=== PATIENT | female | born 1995 | race Two or more races ===

== ENCOUNTER 2018-02-17 13:42 | Emergency (ER) | payer SELFPAY ==
[2018-02-17 13:54] VITALS: BP 120/71
[2018-02-17 14:40] LABS: APPEARANCE,URINE SLIGHTLY-CLOUDY; BILIRUBIN,URINE NEGATIVE (NEGATIVE); COLOR,URINE AMBER; GLUCOSE, URINE NEGATIVE (NEGATIVE); KETONES,URINE NEGATIVE (NEGATIVE); LEUKOCYTE ESTERASE,URINE SMALL (NEGATIVE); NITRITE,URINE NEGATIVE (NEGATIVE); PROTEIN,URINE NEGATIVE (NEGATIVE); URINE SPECIFIC GRAVITY 1.015; UROBILINOGEN,URINE NEGATIVE mg/dL (<2.0)
[2018-02-17] MEDS ORDERED: CEPHALEXIN 500 MG CAPSULE PO ONE (15:47)
--- NOTE | 2018-02-17 15:48 | ER Document Report ---
HPI - HPI Patient complains to provider of: Urinary symptoms Onset: Last week Onset/Duration: Persistent Quality of pain: Burning Pain Level: 3 Context: Patient presents complaining of frequency and dysuria for the past week. Patient denies any fever, back pain nausea or vomiting. Associated Symptoms: denies: Fever, Nausea, Vomiting Exacerbated by: Denies Relieved by: Denies Similar symptoms previously: Yes Recently seen / treated by doctor: No - ROS ROS below otherwise negative: Yes Systems Reviewed and Negative: Yes All other systems reviewed and negative - CONSTITUTIONAL Constitutional: DENIES: Fever - GASTROINTESTINAL Gastrointestinal: DENIES: Abdominal Pain, Nausea, Patient vomiting - URINARY Urinary: REPORTS: Dysuria, Urgency, Frequency - MUSCULOSKELETAL Musculoskeletal: DENIES: Back Pain - DERM Skin Color: Normal Skin Problems: None Past Medical History - General Information source: Patient - Social History Smoking Status: Never Smoker Frequency of alcohol use: None Drug Abuse: None Occupation: [employer] Family History: Reviewed & Not Pertinent Patient has suicidal ideation: No Patient has homicidal ideation: No - Medical History Medical History: Negative Renal/ Medical History: Denies: Hx Peritoneal Dialysis Past Surgical History: Reports: Hx Orthopedic Surgery Vertical Provider Document - CONSTITUTIONAL Agree With Documented VS: Yes Exam Limitations: No Limitations General Appearance: WD/WN, No Apparent Distress - INFECTION CONTROL TRAVEL OUTSIDE OF THE [place] IN LAST 30 DAYS: No - HEENT HEENT: Atraumatic, Normocephalic - NECK Neck: Normal Inspection - RESPIRATORY Respiratory: Breath Sounds Normal, No Respiratory Distress - CARDIOVASCULAR Cardiovascular: Regular Rate, Regular Rhythm - GI/ABDOMEN Gastrointestinal: Abdomen Soft - BACK Back: Normal Inspection. negative: CVA Tenderness-Right, CVA Tenderness-Left - MUSCULOSKELETAL/EXTREMETIES Musculoskeletal/Extremeties: DIEGO SHEN - NEURO Level of Consciousness: Awake, Alert, Appropriate Motor/Sensory: No Motor Deficit - DERM Integumentary: Warm, Dry Course - Vital Signs Vital signs: Temp Pulse Resp BP Pulse Ox 98.5 F 88 12 120/71 98 02/17/18 13:52 02/17/18 13:52 02/17/18 13:52 02/17/18 13:52 02/17/18 13:52 - Laboratory Laboratory results interpreted by me: 02/17/18 14:00 Urine Blood SMALL H Ur Leukocyte Esterase SMALL H 02/17/18 15:47 Labs- Entire Visit 02/17/18 14:00 Urine Color WALE Urine Appearance SLIGHTLY-CLOUDY Urine pH 6.0 Ur Specific [place] 1.015 Urine Protein NEGATIVE Urine Glucose (UA) NEGATIVE Urine Ketones NEGATIVE Urine Blood SMALL H Urine Nitrite NEGATIVE Urine Bilirubin NEGATIVE Urine Urobilinogen NEGATIVE Ur Leukocyte Esterase SMALL H Urine WBC (Auto) 37 Urine RBC (Auto) 2 Urine Bacteria (Auto) TRACE Squamous Epi Cells Auto 2 Urine Mucus (Auto) RARE Urine Ascorbic Acid NEGATIVE Discharge - Discharge Clinical Impression: UTI (urinary tract infection) Qualifiers: Urinary tract infection type: site unspecified Hematuria presence: with hematuria Qualified Code(s): N39.0 - Urinary tract infection, site not specified Condition: Stable Disposition: HOME, SELF-CARE Instructions: Cephalexin ([facility]), Urinary Anesthetic Agent ([facility]), Urinary Tract Infection ([facility]) Additional Instructions: Return immediately for any new or worsening symptoms Followup with your primary care provider, call tomorrow to make a followup appointment Prescriptions: Cephalexin Monohydrate [Keflex 500 mg Capsule] 500 mg PO Q6H 5 Days capsule Phenazopyridine HCl [Pyridium 200 mg Tablet] 200 mg PO TID #15 tablet Forms: Return to Work Referrals: [facility] [Provider Group] - Follow up as needed
== END 2018-02-17 16:16 | disposition home or self-care (01) ==
LOC: ER 13:42
DX: N39.0 Urinary tract infection, site not specified (principal)
CPT/HCPCS: 81001; 99283

== ENCOUNTER 2018-06-01 21:55 | Emergency (ER) | payer SELFPAY ==
[2018-06-01 23:11] LABS: ABSOLUTE EOSINOPHILS # (AUTO) 0.2 10^3/uL (0.0-0.6); ABSOLUTE LYMPHOCYTES (AUTO) 2.9 10^3/uL (0.5-4.7); ABSOLUTE MONOCYTES (AUTO) 0.9 10^3/uL (0.1-1.4); ABSOLUTE NEUT (AUTO) 6.5 10^3/uL (1.7-8.2); BASOPHILS % (AUTO) 0.3 % (0-2); HEMATOCRIT 33.1 % (36.0-47.0); HEMOGLOBIN 10.6 g/dL (12.0-15.5); LYMPHOCYTES % (AUTO) 27.5 % (13-45); MEAN CORPUSCULAR HEMOGLOBIN 24.2 pg (27.0-33.4); MEAN CORPUSCULAR VOLUME 76 fl (80-97); MONOCYTES % (AUTO) 8.6 % (3-13); PLATELET COUNT 329 10^3/uL (150-450); RED BLOOD COUNT 4.37 10^6/uL (3.72-5.28); RED CELL DISTRIBUTION WIDTH 16.5 % (11.5-14.0); SEGMENTED NEUTROPHILS % (AUTO) 61.6 % (42-78); TOTAL CELLS COUNTED % (AUTO) 100 %; WHITE BLOOD COUNT 10.5 10^3/uL (4.0-10.5)
[2018-06-01 23:12] LABS: APPEARANCE,URINE SLIGHTLY-CLOUDY; BILIRUBIN,URINE NEGATIVE (NEGATIVE); COLOR,URINE YELLOW; GLUCOSE, URINE NEGATIVE (NEGATIVE); KETONES,URINE NEGATIVE (NEGATIVE); LEUKOCYTE ESTERASE,URINE SMALL (NEGATIVE); NITRITE,URINE NEGATIVE (NEGATIVE); PROTEIN,URINE NEGATIVE (NEGATIVE); URINE SPECIFIC GRAVITY 1.029; UROBILINOGEN,URINE NEGATIVE mg/dL (<2.0)
[2018-06-01 23:27] LABS: ALANINE AMINOTRANSFERASE 35 U/L (9-52); ALBUMIN 4.5 g/dL (3.5-5.0); ALKALINE PHOSPHATASE 90 U/L (38-126); ANION GAP 9 (5-19); ASPARTATE AMINO TRANSFERASE 22 U/L (14-36); BILIRUBIN,DIRECT 0.1 mg/dL (0.0-0.4); BILIRUBIN,TOTAL 0.2 mg/dL (0.2-1.3); BLOOD UREA NITROGEN 16 mg/dL (7-20); CALCIUM 9.5 mg/dL (8.4-10.2); CARBON DIOXIDE 26 mmol/L (22-30); CHLORIDE 105 mmol/L (98-107); GLUCOSE 94 mg/dL (75-110); POTASSIUM 4.3 mmol/L (3.6-5.0); SODIUM 140.2 mmol/L (137-145); TOTAL PROTEIN 7.8 g/dL (6.3-8.2)
[2018-06-02] MEDS ORDERED: METOCLOPRAMIDE HCL INJ/PF 10 MG/2 ML SDV IV ONE (01:44)
[2018-06-02] MEDS ORDERED: NORMAL SALINE 1000 ML 1,000 ML IV ONE (01:45)
--- NOTE | 2018-06-02 01:48 | ER Document Report ---
ED General - General Chief Complaint: High Blood Pressure Stated Complaint: HEADACHE/DIZZINESS Time Seen by Provider: 06/02/18 00:51 Notes: Patient is a 22-year-old female with a past medical history of iron deficiency anemia, no other chronic medical problems, presents with multiple complaints. Patient complains of nausea, diarrhea, lightheadedness, intermittent chest discomfort, intermittent shortness of breath, headache, and feeling remittent abdominal cramping. Patient reports the symptoms have been ongoing for the past 2 weeks. Nothing is new or different that prompted a visit to the emergency department tonight. Nothing improves or worsens her symptoms. Denies history of similar symptoms in the past. No sick contacts. She has not seen her general physician regarding today's concerns. TRAVEL OUTSIDE OF THE [place] IN LAST 30 DAYS: No - HPI Onset: Last week Onset/Duration: Gradual, Intermittent Quality of pain: Dull, Pressure Severity: Mild Pain Level: 1 Exacerbated by: Denies Relieved by: Denies Similar symptoms previously: No Recently seen / treated by doctor: No - Related Data Allergies/Adverse Reactions: No Known Allergies Allergy (Unverified 02/17/18 13:43) Past Medical History - General Information source: Patient - Social History Smoking Status: Never Smoker Frequency of alcohol use: None Drug Abuse: None Lives with: Spouse/Significant other Family History: Reviewed & Not Pertinent Patient has suicidal ideation: Yes - denies SI today Patient has homicidal ideation: No Renal/ Medical History: Denies: Hx Peritoneal Dialysis Past Surgical History: Reports: Hx Orthopedic Surgery Review of Systems - Review of Systems Notes: Constitutional: Negative for fever. HENT: Negative for sore throat. Eyes: Negative for visual changes. Cardiovascular: Positive for intermittent chest discomfort not currently present Respiratory: Positive for intermittent shortness of breath Gastrointestinal: Negative for abdominal pain, positive for diarrhea and nausea. Positive for intermittent abdominal cramping Genitourinary: Negative for dysuria. Musculoskeletal: Negative for back pain. Skin: Negative for rash. Neurological: Positive for headache 10 point ROS negative except as marked above and in HPI. Physical Exam - Vital signs Vitals: Temp Pulse Resp BP Pulse Ox 98.5 F 107 H 17 132/76 H 100 06/01/18 22:07 06/01/18 22:07 06/01/18 22:07 06/01/18 22:07 06/01/18 22:07 Interpretation: Tachycardic Notes: PHYSICAL EXAMINATION: GENERAL: Well-appearing, well-nourished and in no acute distress. HEAD: Atraumatic, normocephalic. EYES: Pupils equal round and reactive to light, extraocular movements intact, sclera anicteric, conjunctiva are normal. ENT: nares patent, oropharynx clear without exudates. Moist mucous membranes. NECK: Normal range of motion, supple without lymphadenopathy LUNGS: Breath sounds clear to auscultation bilaterally and equal. No wheezes rales or rhonchi. HEART: Regular tachycardia without murmurs ABDOMEN: Soft, nontender, normoactive bowel sounds. No guarding, no rebound. No masses appreciated. EXTREMITIES: Normal range of motion, no pitting or edema. No cyanosis. NEUROLOGICAL: Face symmetric. Tongue protrudes midline. Extraocular motions intact. Pupils are 2 mm and equally reactive. Normal speech, normal gait. 5 out of 5 strength in both the distal and proximal upper and lower extremities bilaterally. Sensation is grossly intact throughout. Finger to nose testing normal. Pronator drift normal. PSYCH: Anxious, intermittently tearful SKIN: Warm, Dry, normal turgor, no rashes or lesions noted. Course - Re-evaluation Re-evalutation: 06/02/18 01:47 Patient presents with multiple vague complaints that did not appear to be concerning for any acute life-threatening pathology. Patient complaints include shortness of breath, intermittent chest discomfort, headache, nausea, lightheadedness, diarrhea, and intermittent abdominal cramping. Patient was noted to be mildly tachycardic in triage and at the time of my assessment. This did resolve after IV fluid resuscitation. Physical examination is unremarkable. Patient has tolerated oral intake without difficulty. Patient was not noted to be in distress at any point except when she did develop an acute panic attack and required administration of diazepam. At this time, based on the reassuring evaluation, I do not suspect an acute DC, pulmonary embolus, aortic dissection, acute intra-abdominal pathology, stroke, or sepsis. Patient has improvement of her symptoms after receiving metoclopramide and IV fluids. Will discharge with return precautions and follow-up recommendations. Verbal discharge instructions given a the bedside and opportunity for questions given. Medication warnings reviewed. Patient is in agreement with this plan and has verbalized understanding of return precautions and the need for primary care follow-up in the next 24-72 hours. - Vital Signs Vital signs: Temp Pulse Resp BP Pulse Ox 98.5 F 107 H 24 H 109/75 100 06/01/18 22:07 06/01/18 22:07 06/02/18 02:00 06/02/18 01:01 06/02/18 01:01 - Laboratory Result Diagrams: 06/01/18 22:50 06/01/18 22:50 Laboratory results interpreted by me: 06/01/18 06/01/18 22:50 22:50 Hgb 10.6 L Hct 33.1 L MCV 76 L MCH 24.2 L RDW 16.5 H Ur Leukocyte Esterase SMALL H - Diagnostic Test Radiology reviewed: Image reviewed, Reports reviewed Radiology results interpreted by me: 06/02/18 03:23 Chest x-ray: No acute infiltrate or pneumothorax Discharge - Discharge Clinical Impression: Lightheadedness, Nausea Iron deficiency anemia Qualifiers: Iron deficiency anemia type: unspecified iron deficiency Qualified Code(s): D50.9 - Iron deficiency anemia, unspecified Headache Qualifiers: Headache type: unspecified Headache chronicity pattern: acute headache Intractability: not intractable Qualified Code(s): R51 - Headache Condition: Good Disposition: HOME, SELF-CARE Additional Instructions: Please return to the emergency room immediately if you experience any concerning symptoms including high fevers, severe headache, chest pain, difficulty breathin g, abdominal pain, slurred speech, numbness or weakness in your arms or legs, or any other symptom that concerns you.
[2018-06-02] MEDS ORDERED: DIAZEPAM INJ 10 MG/2 ML DISP.SYRIN IV ONE (02:19)
[2018-06-02 03:06] VITALS: BP 109/75
--- NOTE | 2018-06-02 03:17 | RADIOLOGY REPORT (SQ) ---
EXAM DESCRIPTION: XR CHEST 1 VIEW COMPLETED DATE/TME: 06/02/2018 01:45 CLINICAL HISTORY: 22 years Female, cp COMPARISON: None. NUMBER OF VIEWS/TECHNIQUE: 1/AP FINDINGS: Adequate lung volume, clear parenchyma, normal cardiac silhouette, and intact bony thorax. IMPRESSION: No acute cardiopulmonary findings.
== END 2018-06-02 03:57 | disposition home or self-care (01) ==
LOC: ER 21:55
DX: R51 Headache (principal); R11.0 Nausea; D50.9 Iron deficiency anemia, unspecified; R42 Dizziness and giddiness; R19.7 Diarrhea, unspecified; R07.9 Chest pain, unspecified; R06.02 Shortness of breath; R10.9 Unspecified abdominal pain
CPT/HCPCS: 99284; 96374; 96375; 36415; 85025; 81025; 80053; 81001; 71045; J3360; J2765; J7030; 96361

== ENCOUNTER 2019-11-24 16:57 | Emergency (ER) | payer SELFPAY ==
--- NOTE | 2019-11-24 17:41 | ER Document Report ---
ED Medical Screen (RME) - General Chief Complaint: Vaginal Bleeding Stated Complaint: VAGINAL BLEEDING Time Seen by Provider: 11/24/19 17:34 Notes: Patient is a 24-year-old female who presents emergency department with a chief complaint of vaginal bleeding. Patient reports over the past 3 months she has had heavy vaginal bleeding to include large clots. Patient reports she is always blood heavily. 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 She states that she does have a history of ovarian cysts. Patient denies concern for sexually transmitted disease. Patient reports that over the past week she has become more lightheaded and dizzy and concern for possible anemia. TRAVEL OUTSIDE OF THE [place] IN LAST 30 DAYS: No - Related Data Allergies/Adverse Reactions: No Known Allergies Allergy (Unverified 11/24/19 17:28) Home Medications: Latuda. Trintellix Past Medical History - Social History Chew tobacco use (# tins/day): No Frequency of alcohol use: None Drug Abuse: None Renal/ Medical History: Denies: Hx Peritoneal Dialysis Past Surgical History: Reports: Hx Orthopedic Surgery Physical Exam - Vital signs Vitals: Temp Pulse Resp BP Pulse Ox 98.5 F 99 18 134/79 H 100 11/24/19 17:04 11/24/19 17:04 11/24/19 17:04 11/24/19 17:04 11/24/19 17:04 - Abdominal Inspection: Normal Distension: No distension Bowel sounds: Normal Tenderness: Nontender Organomegaly: No organomegaly Course - Re-evaluation Re-evalutation: 11/24/19 17:41 Patient's not tachycardic, hypotensive or febrile. Will obtain basic labs, ultrasound, and a urinalysis. I have greeted and performed a rapid initial assessment of this patient. A comprehensive ED assessment and evaluation of the patient, analysis of test results and completion of the medical decision making process will be conducted by additional ED providers. - Vital Signs Vital signs: Temp Pulse Resp BP Pulse Ox 98.5 F 99 18 134/79 H 100 11/24/19 17:04 11/24/19 17:04 11/24/19 17:04 11/24/19 17:04 11/24/19 17:04
[2019-11-24 18:32] LABS: ABSOLUTE BASOPHILS # (AUTO) 0.1 10^3/uL (0.0-0.2); ABSOLUTE EOSINOPHILS # (AUTO) 0.1 10^3/uL (0.0-0.6); ABSOLUTE MONOCYTES (AUTO) 0.6 10^3/uL (0.1-1.4); ABSOLUTE NEUT (AUTO) 4.5 10^3/uL (1.7-8.2); BASOPHILS % (AUTO) 0.7 % (0-2); EOSINOPHILS % (AUTO) 1.5 % (0-6); HEMATOCRIT 25.2 % (36.0-47.0); HEMOGLOBIN 8.3 g/dL (12.0-15.5); LYMPHOCYTES % (AUTO) 36.2 % (13-45); MEAN CORPUSCULAR HEMOGLOBIN 24.8 pg (27.0-33.4); MEAN CORPUSCULAR VOLUME 75 fl (80-97); MONOCYTES % (AUTO) 7.7 % (3-13); PLATELET COUNT 357 10^3/uL (150-450); RED BLOOD COUNT 3.35 10^6/uL (3.72-5.28); RED CELL DISTRIBUTION WIDTH 17.8 % (11.5-14.0); SEGMENTED NEUTROPHILS % (AUTO) 53.9 % (42-78); TOTAL CELLS COUNTED % (AUTO) 100 %; WHITE BLOOD COUNT 8.3 10^3/uL (4.0-10.5)
[2019-11-24 18:39] LABS: APPEARANCE,URINE CLOUDY; BILIRUBIN,URINE NEGATIVE (NEGATIVE); COLOR,URINE YELLOW; GLUCOSE, URINE NEGATIVE (NEGATIVE); KETONES,URINE NEGATIVE (NEGATIVE); LEUKOCYTE ESTERASE,URINE NEGATIVE (NEGATIVE); NITRITE,URINE NEGATIVE (NEGATIVE); PROTEIN,URINE 100 mg/dL (NEGATIVE); URINE SPECIFIC GRAVITY 1.015; UROBILINOGEN,URINE NEGATIVE mg/dL (<2.0)
[2019-11-24 18:50] LABS: ALBUMIN 4.5 g/dL (3.5-5.0); ALKALINE PHOSPHATASE 91 U/L (38-126); ANION GAP 8 (5-19); ASPARTATE AMINO TRANSFERASE 44 U/L (14-36); BILIRUBIN,TOTAL 0.2 mg/dL (0.2-1.3); BLOOD UREA NITROGEN 10 mg/dL (7-20); CALCIUM 9.5 mg/dL (8.4-10.2); CARBON DIOXIDE 26 mmol/L (22-30); CHLORIDE 103 mmol/L (98-107); GLUCOSE 83 mg/dL (75-110); POTASSIUM 3.9 mmol/L (3.6-5.0); TOTAL PROTEIN 8.1 g/dL (6.3-8.2)
--- NOTE | 2019-11-24 19:06 | ER Document Report ---
Entered by ANA OAKES SCRIBE 11/24/19 1856 Acting as scribe for:ELY OTERO, ED GI/ <NICK MUNOZ - Last Filed: 11/24/19 19:51> - General Information source: Patient TRAVEL OUTSIDE OF THE [place] IN LAST 30 DAYS: No - Related Data Home Medications: Latuda. Trintellix <ELY OTERO - Last Filed: 11/24/19 20:46> - General Chief Complaint: Vaginal Bleeding Stated Complaint: VAGINAL BLEEDING Time Seen by Provider: 11/24/19 17:34 Primary Care Provider: [facility] [Outside] - Follow up as needed [facility] [Outside] - 11/25/19 8:00 am (Can walk in as early as tomorrow (11/25/2019) morning.) [facility] [Outside] - Follow up as needed RADHA HERNANDEZ MD [ACTIVE STAFF] - 11/26/19 Notes: This 24 year old female patient presents to the emergency department today with complaints of vaginal bleeding for the last three months. Patient reports that she has had irregular periods her entire life. Patient mentions that she has had a 1 to 2-week history of shortness of breath as well. Patient mentions lower abdominal cramping, generalized weakness, and headache as well. Patient mentioned that when asked in triage if she had felt suicidal over the past 2 weeks, she indicated to them yes. Upon further questioning, the patient states she has not had any recent suicidal ideation and she has not had any suicidal thoughts today. Patient has a history of bipolar depression. (ELY OTERO) - Related Data Allergies/Adverse Reactions: No Known Allergies Allergy (Unverified 11/24/19 17:28) Past Medical History - General Information source: Patient - Social History Smoking Status: Never Smoker Cigarette use (# per day): No Chew tobacco use (# tins/day): No Frequency of alcohol use: None Drug Abuse: None Lives with: Family Family History: Reviewed & Not Pertinent Patient has homicidal ideation: No Psychiatric Medical History: Reports: Hx Anxiety, Hx Depression - w/ multiple previous suicide attempts Past Surgical History: Reports: Hx Orthopedic Surgery <ELY OTERO - Last Filed: 11/24/19 20:46> Review of Systems - Review of Systems Constitutional: See HPI, Weakness EENT: No symptoms reported Cardiovascular: No symptoms reported Respiratory: See HPI, Short of breath Gastrointestinal: No symptoms reported Genitourinary: No symptoms reported Female Genitourinary: See HPI, Vaginal bleeding Musculoskeletal: No symptoms reported Skin: No symptoms reported Hematologic/Lymphatic: No symptoms reported Neurological/Psychological: See HPI, Headaches. denies: Suicidal ideation -: Yes All other systems reviewed and negative <ELY OTERO - Last Filed: 11/24/19 20:46> Physical Exam <ELY OTERO - Last Filed: 11/24/19 20:46> - Vital signs Vitals: Temp Pulse Resp BP Pulse Ox 98.5 F 99 18 134/79 H 100 11/24/19 17:04 11/24/19 17:04 11/24/19 17:04 11/24/19 17:04 11/24/19 17:04 - Notes Notes: Physical Exam: General: Alert, appears well. HEENT: Normocephalic. Atraumatic. PERRL. Extraocular movements intact. Oropharynx clear. Neck: Supple. Non-tender. Respiratory: No respiratory distress. Clear and equal breath sounds bilaterally. Cardiovascular: Regular rate and rhythm. Abdominal: Normal Inspection. Non-tender. No distension. Normal Bowel Sounds. Back: No gross abnormalities. Extremities: Moves all four extremities. Upper extremities: Normal inspection. Normal ROM. Lower extremities: Normal inspection. No edema. Normal ROM. Neurological: Normal cognition. AAOx4. Normal speech. Psychological: Normal affect. Normal Mood. Skin: Warm. Dry. Normal color. (ELY OTERO) Course - Laboratory Result Diagrams: 11/24/19 18:07 11/24/19 18:07 <NICK MUNOZ - Last Filed: 11/24/19 19:51> - Laboratory Result Diagrams: 11/24/19 18:07 11/24/19 18:07 - Diagnostic Test Radiology reviewed: Reports reviewed - EKG Interpretation by Me EKG shows normal: Sinus rhythm Rate: Normal Rhythm: NSR - NSR Nl [place] [address] elevation or depression my interpretation. <ELY OTERO - Last Filed: 11/24/19 20:46> - Re-evaluation Re-evalutation: 11/24/19 20:22 MDM 24 year old female arrives with complaints of vaginal bleeding and weakness. No fever. No covid risks. Some depression and history of bipolar also. She is currently not expressing SI - verified by myself and behavioral health team and nursing staff. She will follow up and we resume medicines for 2 weeks. 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 (ELY OTERO) - Vital Signs Vital signs: Temp Pulse Resp BP Pulse Ox 97.5 F 86 18 121/69 100 11/24/19 20:43 11/24/19 20:43 11/24/19 20:43 11/24/19 20:43 11/24/19 20:43 - Laboratory Laboratory results interpreted by me: 11/24/19 11/24/19 11/24/19 18:07 18:07 18:07 RBC 3.35 L Hgb 8.3 L Hct 25.2 L MCV 75 L MCH 24.8 L RDW 17.8 H AST 44 H ALT 65 H Urine Protein 100 H Urine Blood LARGE H Discharge <NICK MUNOZ - Last Filed: 11/24/19 19:51> <ELY OTERO - Last Filed: 11/24/19 20:46> - Discharge Clinical Impression: Vaginal bleeding Anemia Qualifiers: Anemia type: unspecified type Qualified Code(s): D64.9 - Anemia, unspecified Depression Qualifiers: Depression Type: unspecified Qualified Code(s): F32.9 - Major depressive disorder, single episode, unspecified Condition: Stable Disposition: HOME, SELF-CARE Instructions: Anemia ([facility]), Vaginal Bleeding ([facility]) Additional Instructions: You have been evaluated by both medical and behavioral health teams for depression and suicidal ideation. You have been deemed appropriate for discharge. While in the emergency department you received the following servic es/or had access to: Medical screening and assessment, nursing services, dietary services, pharmacological services, one-on-one counseling and/or psychotherapy, environmental services, and continuous observation by a patient safety analyst. Medication recommendations have been have been provided and are as follows: Add Zyprexa 2.5MG by mouth twice a day for mood stabilization/impulse control Add Buspar 5MG by mouth twice a day for anxiety/calming effect/depression/sleep Please take your medications as prescribe and do not stop these medications without discussion with your prescribing physician. DEPRESSION: (often times Bipolar cycles between depression, dionte and/or anger) Your evaluation reveals that you have mental depression. While symptoms may be vague, they often include disturbance of sleep, fatigue, loss of appetite, and general loss of interest in life. While depression may be a side effect of drugs, or a reaction to a major change in your life, many cases have no known cause. If depression is acute, and related to a major loss in your life, you can expect it to clear completely with time. If you have been depressed a long time, are prone to repeated bouts of depression or low mood, or have been thinking of suicide, get help. Depression can be treated with anti-depressant medication and counselling. Long-term depression will often take a few weeks to clear, even with appropriate medication. Follow-up care is important. SUICIDAL IDEATION: Suicidal ideation is a common medical term for thoughts about suicide, which may be as detailed as a formulated plan, without the suicidal act itself. Although most people who undergo suicidal ideation do not commit suicide, some go on to make suicide attempts. The range of suicidal ideation varies greatly from fleeting to detailed planning, role playing, and unsuccessful attempts. While thoughts about suicide are common, most people do not carry out serious actions to commit suicide. Based upon your evaluation and discussion with you, we do not believe you are currently at risk to act upon your thoughts of suicide. You have agreed to return to the Emergency Department, at any time, if you feel inclined to act upon your suicidal thoughts. FOLLOW-UP CARE: You are recommended to do a walk in to [facility] in order to re establish services. They do walk ins Mondays-Fridays 8:00AM-4:30PM. They can provide medication management, group therapy and individual therapy. It is important to take advantage of any services available. You have also been provided both mobile crisis numbers. If you experience worsening or a significant change in your symptoms notify your physician immediately, utilize mobile crisis or return to the Emergency Department at any time for re- evaluation. Medical: Rest, fluids, please return here for weakness, increasing bleeding, shortness of breath or other concerns. Call 911 if you think you may hurt yourself. Your liver function blood tests are mildly elevated and should be rechecked in 4-6 weeks. You also have a degree of anemia and should take a vitamin with iron. Prescriptions: Buspirone HCl [Buspar 10 mg Tablet] 5 mg PO BID #30 tab Norethindrone-Ethin. Estradiol [Ortho-Novum] 4 each PO DAILY #28 tablet Olanzapine [Zyprexa 2.5 Mg Tablet] 2.5 mg PO BID #30 tablet Forms: Return to Work Referrals: [facility] [Outside] - Follow up as needed [facility] [Outside] - 11/25/19 8:00 am (Can walk in as early as tomorrow (11/25/2019) morning.) [facility] [Outside] - Follow up as needed RADHA HERNANDEZ MD [ACTIVE STAFF] - 11/26/19 I personally performed the services described in the documentation, reviewed and edited the documentation which was dictated to the scribe in my presence, and it accurately records my words and actions.
--- NOTE | 2019-11-24 19:09 | PSYCHOLOGICAL NOTE ---
Psych Note - Psych Note Date seen by psych provider: 11/24/19 Time seen by psych provider: 18:30 - [phone]. Spoke to shawn via telephone from [phone]. Then spoke to patient and boyfriend together in ED room regarding plan of care. Psych Note: Patient is a 24 year old female who presented to the ED today via POV for Chief Compliant of vaginal bleeding x 3 months. During her triage screening she scored moderate on the depression/suicidal ideation screening questions: in the past two weeks she felt down/depressed/hopeless, in the past two weeks she had thoughts of killing herself, in her lifetime she has had suicide attempts that were more than 6 months ago, she has been thinking about how to kill herself but no intentions and yes to being hospitalized for mental health or substance abuse. Patient reported "it happens a lot, I have mood swings" when asked about her thoughts of feeling down/depressed/hopeless in the past couple weeks. She identified she has diagnoses of Bipolar, Depression and Anxiety. She acknowledged "both" when asked if her thoughts about killing herself were things like I wish I was or had ideas of what she could do to kill herself. Patient denied taking any kind of action or getting anything ready/denied preparation. She admitted "a few years ago" she attempted to kill herself. When asked what she did she reported "I took pills, I tried to jump out of a car, drowning and I can't remember what else." She denied previous mental health hospitalizations and when informed it was documented she said yes she stated "I said yes to surgeries and medical." She denied drug and alcohol use. She stated "I tried marijuana once." Patient identified she was going to [facility] who has her prescribed Latuda and Trintellix. In discussion she admitted "I have not been going like I'm supposed to, it's almost been a year, I had samples of medication, I have some but don't take it like I'm supposed to, sometimes I forget, and I don't like the one it makes me feel tired, I work and can't be sleepy." Patient identified "I am having trouble sleeping again." When noted she said again so this being an issue in the past, inquired if she ever took any medication for sleep and she said "no." She noted there was a time when she was getting maybe 2 hours of sleep, now she reported on average she gets 4-5 hours of sleep and has issues with both falling and staying asleep. Patient denied current suicidal ideation. Patient was alert and oriented to self, person, place, time and situation. Mood was euthymic with congruent affect. She denied current suicidal and homicidal ideation. Patient did not appear to be responding to internal stimuli as evidenced by fair eye contact and answering questions appropriately when addressed. Thought processes are linear and organized. Conversational speech was within normal limits for rate, tone and prosody. Intellectual abilities are estimated to be average. Insight, judgment and impulse control were fair as evidenced by being honest about her mental health and not maintaining follow up care. Spoke to patient's live in [facility] Deandre Caogo ([phone]). He agreed to be in control of medications and administration. He stated he did mention to patient needing to reach back out to her outpatient provider. He noted he was in the hospital. This clinician spoke to both patient and boyfriend about getting rid of the old medications/samples of Latuda and Trintellix (explained the [employer]'s [employer] and some Pharmacies allow for drop off of old medications) and patient does not need to have access to them or the new prescriptions. Went over the walk in times for [place] and explained as a walk in they would likely sit there all day, would be seen and then would get appointments scheduled. Also went over the [facility] numbers, how patient can use them for crisis/talk therapy and how boyfriend can use if he's concerned and patient does not open up to him. Further explained [facility] will meet in the community/at their home and their goal is to avoid hospitalizat ion. Clinical Presentation: Noncompliant with outpatient follow up and medication management Depression Suicidal Ideation (denied current but reported has had thoughts in the last 2 weeks) Diagnosis: Bipolar by history per patient Medication recommendations made by the psychiatric medication provider Dr. Tania JI., includes: Add Zyprexa 2.5MG by mouth twice a day for mood stabilization/impulse control Add Buspar 5MG by mouth twice a day for anxiety/calming effect/depression/sleep Impression/Plan: Patient is cleared from acute psychiatric services. Patient denied current suicidal ideation. She admitted to having depression/feeling down/feeling hopeless and having suicidal thoughts in the last 2 weeks but d enied any action or planning/preparation. She reported a history of Bipolar, was going to [facility] but it has been almost a year, and is supposed to be on medications (Latuda, Trintellix) but admitted not taking it like she's supposed to because she forgets and the one makes her sleepy which she cannot be at work (concern for work which indicated future/forward/goal oriented thinking). She also told patient access she was interested in someone from the hospital calling her about insurance assistance since she is self pay (again indicated future/forward/goal oriented thinking). Psychoeducated patient about Bipolar being a chemical imbalance in the brain so just like diabetes or thyroid issues require medication for stabilization. Also explained that some medications only cause the drowsiness or sleepy feeling the first 5 days until the body gets used to the medication. Provided prescriptions to address mood, impulse control, depression, anxiety and sleep. Included patient's live in boyfriend in plan of care. He agreed to be in control of medications and administration. Encouraged patient to do a walk in to [facility] in order to re establish services. Provided patient with the outpatient mental health resource sheet which highlighted both [facility] numbers for crisis/talk therapy/linkage to other services and supports, as well as documented [facility] walk in times. Consulted with Dr. Jama regarding the management and care of patient. ED Physician in agreement with recommendations.
--- NOTE | 2019-11-24 19:49 | RADIOLOGY REPORT (SQ) ---
EXAM DESCRIPTION: U/S NON OB PEL W/DOPPLER IMAGES COMPLETED DATE/TIME: 11/24/2019 7:38 pm REASON FOR STUDY: pain/ bleeding LMP unknown COMPARISON: None. TECHNIQUE: Dynamic and static grayscale images acquired of the pelvis via transabdominal approach an d recorded on PACS. Additional selected color Doppler and spectral images recorded. LIMITATIONS: None. FINDINGS: UTERUS: Contour normal. No mass. There appears to be a small calcified fibroid in the low er uterine segment measuring 12 x 7 x 3 mm. ENDOMETRIAL STRIPE: No focal or generalized thickening. No masses. CERVIX: 2.5 cm. RIGHT OVARY AND DOPPLER: Normal size. No worrisome masses. Normal arterial vascular flow without evid ence for torsion. LEFT OVARY AND DOPPLER: Normal size. No worrisome masses. Normal arterial vascular flow without evide nce for torsion. FREE FLUID: None noted. OTHER: No other significant finding. MEASUREMENTS: UTERUS: 8.9 x 4.9 x 4.1 cm. ENDOMETRIAL STRIPE: 4.7 mm. RIGHT OVARY: 2.8 x 2.1 x 2.1 cm. LEFT OVARY: 2.8 x 2.7 x 2.4 cm. IMPRESSION: Essentially normal. There may be a small calcified uterine fibroid in the lower uterine segment. TECHNICAL DOCUMENTATION: JOB ID: [id number] 2010 [employer]- All Rights Reserved Rev-09/28 Reading location - IP/workstation name: [email or web address]
[2019-11-24] MEDS ORDERED: ACETAMINOPHEN 325 MG TABLET PO ONE (20:28)
[2019-11-24 20:43] VITALS: BP 121/69
--- NOTE | 2019-11-25 14:33 | EKG REPORT ---
SEVERITY:- NORMAL ECG - SINUS RHYTHM : Confirmed by: Elijah Nassar MD 25-Nov-2019 14:31:39
== END 2019-11-24 20:43 | disposition home or self-care (01) ==
LOC: ER 16:57
DX: N93.8 Other specified abnormal uterine and vaginal bleeding (principal); D64.9 Anemia, unspecified; F32.9 Major depressive disorder, single episode, unspecified; R42 Dizziness and giddiness; R10.30 Lower abdominal pain, unspecified; R51 Headache; R53.1 Weakness
CPT/HCPCS: 36415; 76856; 80053; 81001; 84443; 84702; 85025; 93005; 93010; 93976; 99285

== ENCOUNTER 2019-11-30 22:49 | Emergency (ER) | payer SELFPAY ==
[2019-12-01] MEDS ORDERED: NORMAL SALINE 1000 ML 1,000 ML IV ONE ×2 (00:55→02:31)
[2019-12-01] MEDS ORDERED: ONDANSETRON HCL INJ/PF 4 MG/2 ML SDV IV ONE (00:55)
[2019-12-01 01:29] LABS: ABSOLUTE EOSINOPHILS # (AUTO) 0.2 10^3/uL (0.0-0.6); ABSOLUTE LYMPHOCYTES (AUTO) 4.2 10^3/uL (0.5-4.7); ABSOLUTE MONOCYTES (AUTO) 0.6 10^3/uL (0.1-1.4); ABSOLUTE NEUT (AUTO) 7.2 10^3/uL (1.7-8.2); BASOPHILS % (AUTO) 0.4 % (0-2); EOSINOPHILS % (AUTO) 1.2 % (0-6); LYMPHOCYTES % (AUTO) 34.2 % (13-45); MEAN CORPUSCULAR HEMOGLOBIN 23.7 pg (27.0-33.4); MEAN CORPUSCULAR HGB CONC 31.9 g/dL (32.0-36.0); MEAN CORPUSCULAR VOLUME 75 fl (80-97); PLATELET COUNT 294 10^3/uL (150-450); RED BLOOD COUNT 2.83 10^6/uL (3.72-5.28); RED CELL DISTRIBUTION WIDTH 19.3 % (11.5-14.0); SEGMENTED NEUTROPHILS % (AUTO) 59.2 % (42-78); TOTAL CELLS COUNTED % (AUTO) 100 %; WHITE BLOOD COUNT 12.2 10^3/uL (4.0-10.5)
[2019-12-01 01:30] LABS: HEMOGLOBIN 6.7 g/dL (12.0-15.5)
[2019-12-01 01:39] LABS: ALBUMIN 3.6 g/dL (3.5-5.0); ALKALINE PHOSPHATASE 69 U/L (38-126); ANION GAP 8 (5-19); ASPARTATE AMINO TRANSFERASE 21 U/L (14-36); BILIRUBIN,TOTAL 0.2 mg/dL (0.2-1.3); BLOOD UREA NITROGEN 14 mg/dL (7-20); CALCIUM 8.7 mg/dL (8.4-10.2); CARBON DIOXIDE 23 mmol/L (22-30); CHLORIDE 106 mmol/L (98-107); GLUCOSE 162 mg/dL (75-110); POTASSIUM 4.1 mmol/L (3.6-5.0); TOTAL PROTEIN 7.1 g/dL (6.3-8.2)
[2019-12-01 01:48] LABS: INTERNATIONAL RATION (INR) 1.03; PROTHROMBIN TIME 13.5 SEC (11.4-15.4)
[2019-12-01 01:49] LABS: PARTIAL THROMBOPLASTIN TIME 25.9 SEC (23.5-35.8)
[2019-12-01] MEDS: MORPHINE SULFATE 10 MG/ML INJ IV ONE ×2 (02:35→02:38)
[2019-12-01] MEDS ORDERED: PROMETHAZINE HCL INJ 25 MG/1 ML VIAL IV ONE (03:41)
[2019-12-01] MEDS ORDERED: HYDROMORPHONE HCL INJ/PF 2 MG/ML AMPULE IV ONE (03:45)
--- NOTE | 2019-12-01 04:19 | ER Document Report ---
Entered by VICKIE BROWN SCRIBE 12/01/19 0211 Acting as scribe for:SINTIA SZYMANSKI IV, MD ED Headache - General Chief Complaint: Headache Stated Complaint: HEADACHE RADIATE TO BACK OF NECK Time Seen by Provider: 12/01/19 01:41 Mode of Arrival: Ambulatory Information source: Patient Notes: This 24 year old female patient presents to the ED today with complaints of headache with associated nausea for the past x2 weeks. Patient states that the pain starts in the occipital region and radiates towards the frontal region per ED nurse. Denies recent head injury or history of migraines. She states that she has been taking Ibuprofen without relief, last dose was at 1930. Patient was seen here x6 days ago for heavy vaginal bleeding related to menstruation. She states that the bleeding has since resolved and that she was placed on Ortho-Novum. TRAVEL OUTSIDE OF THE [place] IN LAST 30 DAYS: No - Related Data Allergies/Adverse Reactions: No Known Allergies Allergy (Unverified 12/01/19 00:55) Past Medical History - General Information source: Patient - Social History Smoking Status: Never Smoker Cigarette use (# per day): No Chew tobacco use (# tins/day): No Smoking Education Provided: No Frequency of alcohol use: None Drug Abuse: None Family History: Reviewed & Not Pertinent Patient has suicidal ideation: No Patient has homicidal ideation: No Psychiatric Medical History: Reports: Hx Anxiety, Hx Depression - w/ multiple previous suicide attempts Past Surgical History: Reports: Hx Orthopedic Surgery Review of Systems - Review of Systems Constitutional: No symptoms reported EENT: No symptoms reported Cardiovascular: No symptoms reported Respiratory: No symptoms reported Gastrointestinal: See HPI, Nausea Genitourinary: No symptoms reported Female Genitourinary: See HPI. denies: Vaginal bleeding Musculoskeletal: No symptoms reported Skin: No symptoms reported Hematologic/Lymphatic: No symptoms reported Neurological/Psychological: See HPI, Headaches -: Yes All other systems reviewed and negative Physical Exam - Vital signs Vitals: Temp Pulse Resp BP Pulse Ox 99.1 F 105 H 16 128/70 H 99 11/30/19 23:15 11/30/19 23:15 11/30/19 23:15 11/30/19 23:15 11/30/19 23:15 - General General appearance: Alert In distress: None - HEENT Head: Normocephalic, Atraumatic Eyes: Normal Pupils: PERRL - Respiratory Respiratory status: No respiratory distress Chest status: Nontender Breath sounds: Normal Chest palpation: Normal - Cardiovascular Rhythm: Regular Heart sounds: Normal auscultation Murmur: No Friction rub: No Gallop: None auscultated - Abdominal Inspection: Normal Distension: No distension Bowel sounds: Normal Tenderness: Nontender - Abdomen soft Organomegaly: No organomegaly - Genitourinary External exam: Normal Speculum exam: No: Lesions Vaginal bleeding: None Notes: Female roll scale man present - Back Back: Normal, Nontender - Extremities General upper extremity: Normal inspection General lower extremity: Normal inspection - Neurological Neuro grossly intact: Yes Orientation: AAOx4 [place] Coma Scale Eye Opening: Spontaneous Candy Coma Scale Verbal: Oriented Candy Coma Scale Motor: Obeys Commands [place] Coma Scale Total: 15 - Psychological Associated symptoms: Normal affect, Normal mood - Skin Skin Temperature: Warm Skin Moisture: Dry Skin Color: Pale Course - Vital Signs Vital signs: Temp Pulse Resp BP Pulse Ox 98.9 F 90 12 110/62 100 12/01/19 06:52 12/01/19 06:52 12/01/19 06:52 12/01/19 06:52 12/01/19 06:52 - Laboratory Result Diagrams: 12/01/19 01:18 12/01/19 01:18 Laboratory results interpreted by me: 12/01/19 12/01/19 12/01/19 01:18 01:18 01:52 WBC 12.2 H RBC 2.83 L Hgb 6.7 L Hct 21.0 L MCV 75 L MCH 23.7 L MCHC 31.9 L RDW 19.3 H Glucose 162 H Crossmatch See Detail - Consults dr. hernandez Time consulted: 04:30 - recommended txa, transfuse 2 units prbcs in ed, d/c after to f/u with her practice as an outpatient Reason for consultation: 12/01/19 07:04 dysfunctional uterine bleeding, symptomatic anemia Discharge - Discharge Clinical Impression: Symptomatic anemia, Dysfunctional uterine bleeding Condition: Stable Disposition: HOME, SELF-CARE Additional Instructions: Return to the Emergency Department without delay if any worse. HOME CARE INSTRUCTIONS & INFORMATION: Thank you for choosing us for your medical needs. We hope you're satisfied with the care you received. After you leave, you must properly care for your problem and, at the same time, observe its progress. Any condition can change. Some illnesses can change rapidly over hours or days. If your condition worsens, return to the Emergency Department or see your physician promptly. ABOUT YOUR X-RAYS AND EKG'S: If you had an EKG or X-rays taken, they have been read by the Emergency Physician. The X-rays and EKG's will also be read by a Radiologist or Custodial Operations Manager within 24 hours. If discrepancies are noted, you will be notified by telephone. Please be certain the ED has a correct telephone number & address where you can be reached. Also, realize that some fractures or abnormalities do not show up on initial X-rays. If your symptoms continue, see your physician. ABOUT YOUR LABORATORY TEST: If you had laboratory tests, the results have been reviewed by the Emergency Physician. Some test results (for example cultures) may not be available for several days. You will be contacted if any test result shows you need additional treatment. Please be certain the ED has a correct telephone number and address where you can be reached. ABOUT YOUR MEDICATIONS: You will receive instructions on how to take your medicine on the prescription label you receive. Additional information may be provided by the Pharmacy. If you have questions afterwards, call the ED for clarification or further instructions. Some prescribed medications may cause drowsiness. Do not perform tasks such as driving a car or operating machinery without consulting your Pharmacist. If you feel you need a refill of pain medication, your condition will need re-evaluation. Please do not call for a refill of any medication. ABOUT YOUR SIGNATURE: Signature of this document acknowledges to followin. Understanding that you received emergency treatment and that you may be released before al medical problems are known or treated. Please be certain the ED has a correct phone number & address where you can be reached. 2. Acknowledgement that you will arrange for follow-up care as recommended. 3. Authorization for the Emergency Physician to provide information to your follow-up Physician in order to maximize your care. AT ANY TIME, IF YOUR SYMPTOMS CHANGE SIGNIFICANTLY OR WORSEN OR YOU DEVELOP NEW SYMPTOMS, RETURN TO THE EMERGENCY DEPARTMENT IMMEDIATELY FOR RE-EVALUATION. OUR GOAL IS TO PROVIDE EXCELLENT MEDICAL CARE! WE HOPE THAT WE HAVE MET YOUR EXPECTATIONS DURING YOUR EMERGENCY DEPARTMENT VISIT AND THAT YOU FEEL YOU HAVE RECEIVED EXCELLENT CARE! Dysfunctional Uterine Bleeding You're having an abnormal pattern of bleeding from the uterus. We call this dysfunctional uterine bleeding. It is most often caused by a hormone imbalance. Most often this is temporary and no cause is found. There's no evidence of , tumors, or infection as a cause. Dysfunctional uterine bleeding is especially common at times when the normal menstrual cycle is disturbed -- whether by recent , use of control pills or hormones, or impending menopause. Some medical problems lead to dysfunctional bleeding, such as obesity or being very underweight, stress, or thyroid problems. In many cases, the menstrual cycle will return to normal without any treatment. Where the bleeding is significant, high-dose estrogen will usually stop the bleeding within a day of two. A cycle or two of hormones ( control pills) can help restore the uterus to normal. In some patients where bleeding is severe or resistant to treatment, a D&C is required. A endometrial biopsy (a sample of the inside of the uterus) may be recommended for some older women. This would be done by a gynecology specialist. Treatment for anemia may be required if bleeding is severe. You should rest and avoid intercourse until the bleeding is controlled. Call the doctor or return for re-examination if you feel faint, have increasing pain, or have a major increase in the amount of bleeding. Referrals: RADHA HERNANDEZ MD [ACTIVE STAFF] - 12/01/19 I personally performed the services described in the documentation, reviewed and edited the documentation which was dictated to the scribe in my presence, and it accurately records my words and actions.
[2019-12-01] MEDS ORDERED: NORMAL SALINE 250 ML IV PRN ×2 (04:31)
[2019-12-01] MEDS ORDERED: TRANEXAMIC ACID INJ/PF 1,000 MG/10 ML SDV IV STA (04:32)
[2019-12-01 14:28] VITALS: BP 113/73
== END 2019-12-01 14:40 | disposition home or self-care (01) ==
LOC: ER 22:49
DX: D64.9 Anemia, unspecified (principal); N93.8 Other specified abnormal uterine and vaginal bleeding; R51 Headache; R11.0 Nausea
CPT/HCPCS: 99284; 96361; 96374; 96375; 86900; 86901; 36415; 36430; 86850; 84703; 85025; 85610; 85730; 80053; 86920; P9016; J2270; J1170; J2550; J2405; J7030; J7050; J3490